=== PATIENT | male | born 1965 | race Caucasian/White ===

== ENCOUNTER → 2017-09-26 | Outpatient (CLI) | payer OTHER, BC ==
[~2017-09-26] MED LIST: ALLO100; CIPR500 PO; Cyclobenzaprine5 MG PO; FEBU40TA; HYDACE5 PO; IBUP600 PO; LISI20 PO; Norco 5-325 Ta1 EACH PO; Sudogest30 MG; Zofran Odt4 MG SL
== END | disposition home or self-care (01) ==
LOC: LAB 11:40 → LAB SHORT 11:40
DX: M10.9 Gout, unspecified (principal)
CPT/HCPCS: 84550

== ENCOUNTER 2018-01-07 00:53 | Inpatient (IN) | payer OTHER, BC ==
[~2018-01-07] VITALS: Ht 177.8 cm; Wt 86.2 kg
[~2018-01-07 00:53] MED LIST changes: +ALLO100 PO; +ASPI325EC PO; +PROM25 PO; +ROXICODONE5 MG PO; +VICODIN HP 10-1 EACH PO
[2018-01-07 01:34] LABS: BASOPHILS ABSOLUTE AUTO 0.04 K/mm3 (0.00-0.23); BASOPHILS PERCENT AUTO 1 % (0-2); EOSINOPHILS ABSOLUTE AUTO 0.43 K/mm3 (0.00-0.68); EOSINOPHILS PERCENT AUTO 5 % (0-6); Hematocrit 39.1 % (37.0-53.0); Hemoglobin 13.3 g/dL (13.5-17.5); IMMATURE GRAN ABSOLUTE AUTO 0.07 K/mm3 (0.00-0.10); IMMATURE GRAN PERCENT AUTO 1 % (0-1); LYMPHOCYTES ABSOLUTE AUTO 2.34 K/mm3 (0.84-5.20); LYMPHOCYTES PERCENT AUTO 29 % (21-46); MONOCYTES ABSOLUTE AUTO 0.95 K/mm3 (0.16-1.47); MONOCYTES PERCENT AUTO 12 % (4-13); Mean Corpuscular HGB 31.7 pg (26.0-34.0); Mean Corpuscular Volume 93 fL (80-100); Mean Platelet Volume 9.7 fL (9.1-12.4); NEUTROPHILS ABSOLUTE AUTO 4.36 K/mm3 (1.96-9.15); NEUTROPHILS PERCENT AUTO 53 % (41-73); Platelet Count 373 K/mm3 (150-400); RDW Coefficient Variation 11.8 % (11.7-14.2); RDW Standard Deviation 40.2 fL (35.1-46.3); Red Blood Cell Count 4.19 M/mm3 (4.30-5.90); White Blood Cell Count 8.19 K/mm3 (4.00-11.30)
[2018-01-07 01:46] LABS: Alanine Aminotransfer (ALT/SGP 64 U/L (12-78); Albumin, Blood 3.4 g/dL (3.4-5.0); Albumin/Globulin Ratio 0.8 (0.8-1.8); Alk Phos 110 U/L (50-136); Anion Gap 7 mmol/L (6-16); Aspartate Aminotrans (AST/SGOT 40 U/L (12-37); Bilirubin, Total 0.3 mg/dL (0.1-1.0); Blood Urea Nitrogen 17 mg/dL (8-24); Bun/Creatinine Ratio 17.8 (12.0-20.0); CO2, Blood 29 mmol/L (21-32); Chloride, Blood 104 mmol/L (98-108); Creatinine, Blood 0.96 mg/dL (0.60-1.20); Globulin, Blood 4.4 g/dL (2.2-4.0); Glomerular Filtration Rate >60 (60-); Glucose, Blood 115 mg/dL (70-99); Potassium, Blood 4.4 mmol/L (3.5-5.5); Sodium, Blood 140 mmol/L (136-145); Total Protein, Blood 7.8 g/dL (6.4-8.2)
[2018-01-07 06:14] LABS: BASOPHILS ABSOLUTE AUTO 0.03 K/mm3 (0.00-0.23); BASOPHILS PERCENT AUTO 0 % (0-2); EOSINOPHILS ABSOLUTE AUTO 0.37 K/mm3 (0.00-0.68); EOSINOPHILS PERCENT AUTO 5 % (0-6); Hematocrit 34.4 % (37.0-53.0); Hemoglobin 11.7 g/dL (13.5-17.5); IMMATURE GRAN ABSOLUTE AUTO 0.05 K/mm3 (0.00-0.10); IMMATURE GRAN PERCENT AUTO 1 % (0-1); LYMPHOCYTES ABSOLUTE AUTO 1.82 K/mm3 (0.84-5.20); LYMPHOCYTES PERCENT AUTO 24 % (21-46); MONOCYTES ABSOLUTE AUTO 0.82 K/mm3 (0.16-1.47); MONOCYTES PERCENT AUTO 11 % (4-13); Mean Corpuscular HGB 31.5 pg (26.0-34.0); Mean Corpuscular Volume 93 fL (80-100); Mean Platelet Volume 9.5 fL (9.1-12.4); NEUTROPHILS PERCENT AUTO 60 % (41-73); Platelet Count 294 K/mm3 (150-400); RDW Coefficient Variation 11.9 % (11.7-14.2); RDW Standard Deviation 40.2 fL (35.1-46.3); Red Blood Cell Count 3.72 M/mm3 (4.30-5.90); White Blood Cell Count 7.69 K/mm3 (4.00-11.30)
[2018-01-07 16:11] LABS: BODY FLUID RBC 0.756 (0-0); RBC Count, Synovial Fluid 756000 /mm3 (0-0); WBC Count, Synovial Fluid 3194 /mm3 (0-180)
[2018-01-07 16:11] LABS: BODY FLUID RBC 1.356 (0-0); RBC Count, Synovial Fluid 1356000 /mm3 (0-0); WBC Count, Synovial Fluid 7348 /mm3 (0-180)
[2018-01-07 16:12] LABS: Appearance, Synovial Fluid Bloody (Clear); Color, Synovial Fluid Red (None-P Yel)
[2018-01-07 16:12] LABS: Appearance, Synovial Fluid Bloody (Clear); Color, Synovial Fluid Red (None-P Yel)
[2018-01-07 16:15] LABS: Eos, Synovial Fluid 1 % (0-2); Lymphs, Synovial Fluid 6 % (0-15); Monocytes/Macrophages, Synovia 3 % (0-65); Neutrophils, Synovial Fluid 90 % (0-24)
[2018-01-07 16:17] LABS: Eos, Synovial Fluid 1 % (0-2); Lymphs, Synovial Fluid 2 % (0-15); Monocytes/Macrophages, Synovia 8 % (0-65); Neutrophils, Synovial Fluid 89 % (0-24)
[2018-01-08] MEDS ORDERED: CLIN300 PO (12:20)
[2018-01-08] MEDS ORDERED: Bactrim Ds Tab1 EACH PO (12:21)
[2018-01-10] MEDS ORDERED: CUBICIN500 MG IV (07:56)
== END 2018-01-08 13:10 | disposition home or self-care (01) | DRG 501 ==
LOC: ER 00:53 → SURS 03:43
PROVIDERS: Emergency Medicine; Orthopaedic Surgery
PROC: 0M9 Bursae and Ligaments, Drainage (ICD-10-PCS; 2018-01-07)
PROC: 0JDL0ZZ Extraction of Right Upper Leg Subcutaneous Tissue and Fascia, Open Approach (ICD-10-PCS; principal; 2018-01-07 12:30)
DX: T84.51XA Infection and inflammatory reaction due to internal right hip prosthesis, initial encounter (principal); L03.115 Cellulitis of right lower limb; Z87.891 Personal history of nicotine dependence; M10.9 Gout, unspecified; M16.11 Unilateral primary osteoarthritis, right hip
CPT/HCPCS: 36415; 73701; 80053; 85025; 85651; 86140; 89051; 93971; 94762; 96361; 96374; 96375; 96376; 97161; 99284-25; C1751; G8978; G8979; G8980; J0690; J1100; J1170; J1200; J1885; J1956; J2250; J2405; J2710; J3010; J3370; J7030; J7120; Q9967

== ENCOUNTER 2018-01-09 10:00 | Day surgery (SDC) | payer OTHER, BC ==
[~2018-01-09 10:00] MED LIST changes: +Bactrim Ds Tab1 EACH PO; +CLIN300 PO
[2018-01-10] MEDS ORDERED: CUBICIN500 MG IV (07:56)
== END 2018-01-09 11:21 | disposition home or self-care (01) ==
LOC: ATC 10:00
DX: T81.4XXA Infection following a procedure, initial encounter (principal); M00.9 Pyogenic arthritis, unspecified; Z96.641 Presence of right artificial hip joint
CPT/HCPCS: 96365; J0878

== ENCOUNTER 2018-01-11 00:36 | Day surgery (SDC) | payer OTHER, BC ==
[~2018-01-11 00:36] MED LIST changes: +CUBICIN500 MG IV
== END 2018-01-11 08:19 | disposition home or self-care (01) ==
LOC: ATC 00:36
DX: T81.4XXA Infection following a procedure, initial encounter (principal); M00.9 Pyogenic arthritis, unspecified; Z96.641 Presence of right artificial hip joint
CPT/HCPCS: 96365; J0878

== ENCOUNTER 2018-01-12 00:31 | Day surgery (SDC) | payer OTHER, BC | END 2018-01-12 08:40 | disposition home or self-care (01) | LOC: ATC 00:31 | DX: T81.4XXA Infection following a procedure, initial encounter (principal); Z96.641 Presence of right artificial hip joint | CPT/HCPCS: 96365; 99211; J0878 ==

== ENCOUNTER 2018-01-13 07:55 | Day surgery (SDC) | payer OTHER, BC | END 2018-01-13 08:41 | disposition home or self-care (01) | LOC: ATC 07:55 | DX: T81.4XXA Infection following a procedure, initial encounter (principal); M00.9 Pyogenic arthritis, unspecified; Z96.641 Presence of right artificial hip joint | CPT/HCPCS: 96365; J0878 ==

== ENCOUNTER 2018-01-14 00:42 | Day surgery (SDC) | payer OTHER, BC | END 2018-01-14 08:13 | disposition home or self-care (01) | LOC: ATC 00:42 | DX: T81.4XXA Infection following a procedure, initial encounter (principal); M00.9 Pyogenic arthritis, unspecified; Z96.641 Presence of right artificial hip joint | CPT/HCPCS: 96365; J0878 ==

== ENCOUNTER 2018-01-15 00:13 | Day surgery (SDC) | payer OTHER, BC | END 2018-01-15 08:24 | disposition home or self-care (01) | LOC: ATC 00:13 | DX: T81.4XXA Infection following a procedure, initial encounter (principal); Z96.641 Presence of right artificial hip joint | CPT/HCPCS: 96365; J0878 ==

== ENCOUNTER 2018-01-16 02:12 | Day surgery (SDC) | payer OTHER, BC | END 2018-01-16 08:10 | disposition home or self-care (01) | LOC: ATC 02:12 | DX: T81.4XXA Infection following a procedure, initial encounter (principal); Z96.641 Presence of right artificial hip joint | CPT/HCPCS: 96365; J0878 ==

== ENCOUNTER 2018-01-17 00:09 | Day surgery (SDC) | payer OTHER, BC | END 2018-01-17 08:18 | disposition home or self-care (01) | LOC: ATC 00:09 | DX: T81.4XXA Infection following a procedure, initial encounter (principal); Z96.641 Presence of right artificial hip joint | CPT/HCPCS: 96365; J0878 ==

== ENCOUNTER 2018-01-18 00:19 | Day surgery (SDC) | payer OTHER, BC | END 2018-01-18 08:15 | disposition home or self-care (01) | LOC: ATC 00:19 | DX: T81.4XXA Infection following a procedure, initial encounter (principal); Z96.641 Presence of right artificial hip joint | CPT/HCPCS: 96365; J0878 ==

== ENCOUNTER 2018-01-19 08:00 | Day surgery (SDC) | payer OTHER, BC | END 2018-01-19 08:49 | disposition home or self-care (01) | LOC: ATC 08:00 | DX: T81.4XXA Infection following a procedure, initial encounter (principal); L08.89 Other specified local infections of the skin and subcutaneous tissue; Z96.641 Presence of right artificial hip joint | CPT/HCPCS: 96365; J0878 ==

== ENCOUNTER 2018-01-20 07:56 | Day surgery (SDC) | payer OTHER, BC | END 2018-01-20 08:42 | disposition home or self-care (01) | LOC: ATC 07:56 | DX: T81.4XXA Infection following a procedure, initial encounter (principal); Z96.641 Presence of right artificial hip joint; Z87.891 Personal history of nicotine dependence | CPT/HCPCS: 96365; J0878 ==

== ENCOUNTER 2018-01-21 00:35 | Day surgery (SDC) | payer OTHER, BC | END 2018-01-21 08:12 | disposition home or self-care (01) | LOC: ATC 00:35 | DX: T81.49XA Infection following a procedure, other surgical site, initial encounter (principal) | CPT/HCPCS: 96365; J0878 ==

== ENCOUNTER 2019-05-13 11:36 | Inpatient (IN) | payer BC ==
[~2019-05-13] VITALS: Ht 177.8 cm; Wt 100.9 kg
[~2019-05-13 11:36] MED LIST changes: +IBUP800 PO; +VICODIN ES 7.51 EACH PO; +Voltaren100 GM TOP
--- NOTE | 2019-05-14 06:48 | NUR ---
History, Chart, Medications and Allergies reviewed before start of procedure. Lungs clear T/O to Auscultation. Patient confirms NPO status and agrees with scheduled surgery. Pre-Op teaching done. Pt verbalizes understanding. Patient reports completing Chlorhexadine shower X2 prior to admission to hospital. Surgical site prepped with 2% Chlorhexidine cloth wipe. Patient has no complaints of pain at this time. All belonging placed under bed in bag.
--- NOTE | 2019-05-14 11:52 | NUR ---
TRANSFER TO SURGICAL FLOOR PT ARRIVED TO UNIT FROM PACU AT 1030 TODAY VIA HOSPITAL BED. A/OX4 WITH VSS, DENIES SOB, DYSPNEA, OR CHEST PAIN. ABLE TO WIGGLE FINGERS/TOES. DRESSING TO LEFT HIP APPEARS C/D/I WITH NO DRAINAGE NOTED. PAIN AT TOLERABLE LEVEL. POLAR PACK TO LEFT HIP AND BLE TEDS/PAS IN PLACE. TOLERATING CL. AWAITING POST-OP VOID. HAS CALL LIGHT IN REACH AND IS CURRENTLY IN BED VISITING WITH . WILL CONT TO MONITOR.
--- NOTE | 2019-05-14 13:18 | NUR ---
UPDATE PT UP IN CHAIR AND TOLERATING REGULAR DIET. ABLE TO VOID. DRESSING TO LEFT HIP C/D/I WITH NO DRAINAGE NOTED. PAS/TEDS BLE IN PLACE. POLAR DORCAS TO LEFT HIP IN PLACE. AWAITING THERAPY. CURRENTLY VISITING WITH SPOUSE. HAS CALL LIGHT IN REACH.
[2019-05-14] MEDS ORDERED: ASPI325 PO (15:18)
[2019-05-14] MEDS ORDERED: BACTRIM DS TAB1 EACH PO (15:19)
--- NOTE | 2019-05-14 15:25 | NUR ---
P/T IN TO WORK WITH PATIENT AT THIS TIME
[2019-05-14] MEDS ORDERED: OXYC5 PO (15:31)
--- NOTE | 2019-05-14 17:48 | NUR ---
SHIFT SUMMARY PT D/C HOME TODAY AT 1710 VIA WHEELCHAIR. LEFT HIP AND LEG DRESSING C/D/I WITH NO DRAINAGE NOTED. DISCHARGE INSTRUCTIONS, EXTRA DRESSINGS, PERSONAL BELONGINGS, AND POLAR PACK GIVEN TO PT/SPOUSE UPON D/C. SCRIPTS GIVEN TO PT BY PROVIDER PRE-OP, KETURAH CALLED INTO [facility] PER MD. PAIN MANAGED W/PO MEDICATION. TOLERATING REGULAR DIET AND VOIDING WITHOUT DIFFICUTLY. WORKED WITH THERAPY AND WAS CLEARED. IV REMOVED WITH CATH INTACT. PT AND SPOUSE VERBALIZED UNDERSTANDING OF D/C INSTRUCTIONS AND DECLINED ANY QUESTIONS OR CONCERNS.
== END 2019-05-14 17:45 | disposition home or self-care (01) | DRG 470 ==
LOC: SURS 05-14 06:00 → PRE IP 05-14 07:30 → SURS 05-14 10:29
PROVIDERS: ADMIT Orthopaedic Surgery
PROC: 0SRB04A Replacement of Left Hip Joint with Ceramic on Polyethylene Synthetic Substitute, Uncemented, Open Approach (ICD-10-PCS; principal; 2019-05-14 07:30)
DX: M16.12 Unilateral primary osteoarthritis, left hip (principal)
CPT/HCPCS: 72170; 88300; 97110; 97116; 97162; 97165; 97535; A9270-GY; C1713; C1776; J0171; J0461; J0690; J0735; J1100; J1885; J2250; J2370; J2405; J2704; J2795; J3010; J3370; J7120

== ENCOUNTER 2022-02-07 17:05 | Emergency (ER) | payer BC ==
[~2022-02-07] VITALS: Ht 177.8 cm; Wt 97.5 kg
[~2022-02-07 17:05] MED LIST changes: +ASPI325 PO; +BACTRIM DS TAB1 EACH PO; +OXYC5 PO
[2022-02-07 17:43] LABS: BASOPHILS ABSOLUTE AUTO 0.04 K/mm3 (0.00-0.23); BASOPHILS PERCENT AUTO 0 % (0-2); EOSINOPHILS ABSOLUTE AUTO 0.18 K/mm3 (0.00-0.68); EOSINOPHILS PERCENT AUTO 2 % (0-6); Hematocrit 39.5 % (37.0-53.0); Hemoglobin 13.6 g/dL (13.5-17.5); IMMATURE GRAN ABSOLUTE AUTO 0.04 K/mm3 (0.00-0.10); IMMATURE GRAN PERCENT AUTO 0 % (0-1); LYMPHOCYTES ABSOLUTE AUTO 1.06 K/mm3 (0.84-5.20); LYMPHOCYTES PERCENT AUTO 10 % (21-46); MONOCYTES ABSOLUTE AUTO 1.23 K/mm3 (0.16-1.47); MONOCYTES PERCENT AUTO 11 % (4-13); Mean Corpuscular HGB 32.9 pg (26.0-34.0); Mean Corpuscular HGB Conc 34.4 g/dL (31.5-36.5); Mean Corpuscular Volume 96 fL (80-100); Mean Platelet Volume 10.2 fL (9.1-12.4); NEUTROPHILS ABSOLUTE AUTO 8.51 K/mm3 (1.96-9.15); NEUTROPHILS PERCENT AUTO 77 % (41-73); Platelet Count 198 K/mm3 (150-400); RDW Coefficient Variation 12.6 % (11.7-14.2); RDW Standard Deviation 44.3 fL (35.1-46.3); Red Blood Cell Count 4.13 M/mm3 (4.30-5.90); White Blood Cell Count 11.06 K/mm3 (4.00-11.30)
[2022-02-07] MEDS ORDERED: HYDSUL200 PO (18:13)
[2022-02-07 18:15] LABS: Albumin, Blood 3.9 g/dL (3.4-5.0); Albumin/Globulin Ratio 1.1 (0.8-1.8); Bilirubin, Total 0.6 mg/dL (0.1-1.0); Bun/Creatinine Ratio 19.4 (12.0-20.0); Calcium, Blood 9.5 mg/dL (8.5-10.1); Creatinine, Blood 1.08 mg/dL (0.60-1.20); Globulin, Blood 3.7 g/dL (2.2-4.0); Total Protein, Blood 7.6 g/dL (6.4-8.2)
[2022-02-07] MEDS ORDERED: CEPH500 PO (19:26)
== END 2022-02-07 19:44 | disposition home or self-care (01) ==
LOC: ER 17:05
PROVIDERS: Emergency Medicine
DX: L03.115 Cellulitis of right lower limb (principal); Z79.899 Other long term (current) drug therapy
CPT/HCPCS: 36415; 80053; 85025; 93971

== ENCOUNTER 2023-05-29 07:00 | Day surgery (SDC) | payer BC ==
[2023-05-29] VITALS (23 sets, daily range): BP systolic 151–186; BP diastolic 90–124
[~2023-05-29] VITALS: Ht 177.8 cm; Wt 106.0 kg
[~2023-05-29 07:00] MED LIST changes: +CEPH500 PO; +FAMO10 PO; +HYDSUL200 PO; +MAGNESIUM; +VITAMIN D310 MC4 PO; +ZINC15; +ZYRTEC10 M2 PO
[2023-05-29] MEDS ORDERED: Chlorhexidine Mouth Care 15 ML UDC MT SCH (07:05)
[2023-05-29] MEDS ORDERED: Lactated Ringer's 1,000 ML IV SCH ×2 (07:05→09:30)
[2023-05-29] MEDS ORDERED: Ropivacaine 0.5% HCl/Pf 67.75 MG,EPINEPHrine HCL 0.25 MG,Ketorolac Tromethamine 15 MG,C... INFIL SCH (07:05)
[2023-05-29] MEDS ORDERED: OxyCODONE HCL 10 MG TABCR PO SCH (07:05)
[2023-05-29] MEDS ORDERED: CeFAZolin Sodium 2,000 MG in NS 50 ML IV SCH ×2 (07:05→17:15)
[2023-05-29] MEDS ORDERED: Vancomycin HCL 1,000 MG in NS 100 ML IV SCH (07:05)
[2023-05-29] MEDS ORDERED: Acetaminophen 500 MG Tab PO SCH ×2 (07:05→16:00)
[2023-05-29] MEDS ORDERED: TRANEXAMIC ACID IV SCH (07:15)
[2023-05-29] MEDS ORDERED: NS IV SCH (07:15)
[2023-05-29] MEDS ORDERED: propofoL 20 ML IV ONE (08:36)
[2023-05-29] MEDS ORDERED: CYCL10 PO (08:37)
[2023-05-29] MEDS ORDERED: FentaNYL Citrate 50 MCG/ML 2 ML Injection ONE ×5 (09:12→10:40)
[2023-05-29] MEDS ORDERED: Promethazine HCl 25 MG Tab PO PRN (09:30)
[2023-05-29] MEDS ORDERED: Magnesium Hydroxide Conc 10 ML UDC PO PRN (09:30)
[2023-05-29] MEDS ORDERED: OxyCODONE HCL 5 MG TAB PO PRN ×2 (09:30→09:35)
[2023-05-29] MEDS ORDERED: Metoclopramide HCl 5MG / ML 2ML Vial IV PRN (09:30)
[2023-05-29] MEDS ORDERED: Bisacodyl 10 MG Supp PR PRN (09:30)
[2023-05-29] MEDS ORDERED: FLU VACC QS2023-24(6MOS UP)/PF 60 MCG/0.5 ML SYRINGE IM SCH (09:35)
[2023-05-29] MEDS ORDERED: HYDROmorphone HCl/Pf 1MG SYR IV PRN ×2 (09:35→09:55)
[2023-05-29] MEDS ORDERED: Ondansetron HCl 2 MG / ML 2ML Vial IV PRN ×2 (09:35→09:55)
[2023-05-29] MEDS ORDERED: DiphenhydrAMINE HCL 25 MG Cap PO PRN (09:35)
[2023-05-29] MEDS ORDERED: Dexamethasone Sod Phos 10 MG/ML 1ML VIAL ONE (09:50)
--- NOTE | 2023-05-29 09:50 | NUR ---
05/29/23 0950 Yessy Torres SPINAL NERVE BLOCK ATTEMPTED BY DR. EVANS UPON ENTRY TO OR. PT TOLERATED WELL, HOWEVER ATTEMPTS WERE UNSUCCESSFUL. DR. EVANS PLACED AN LMA AFTER PATIENT WAS SEDATED AND MONITORED.
[2023-05-29] MEDS ORDERED: FentaNYL Citrate 50 MCG/ML 2 ML Injection IV PRN ×2 (09:55)
[2023-05-29] MEDS ORDERED: ePHEDrine Sulfate 50 MG/ML 1ML Injection IV PRN (09:55)
[2023-05-29] MEDS ORDERED: Dexamethasone Sodium Phosphate 4 MG/ML 5ML VIAL IV PRN (09:55)
[2023-05-29] MEDS ORDERED: Morphine Sulfate 4 MG/1 ML Injection IV PRN (09:55)
[2023-05-29] MEDS ORDERED: Albuterol 2.5 MG/3 ML VIAL INH PRN (10:00)
[2023-05-29] MEDS ORDERED: Labetalol HCL 5 MG/ML 4ML Injection (Single Dose) IV PRN (10:00)
[2023-05-29] MEDS ORDERED: Atropine Sulfate 0.1 MG/ML 10ML SYR IV PRN (10:00)
[2023-05-29] MEDS ORDERED: LORazepam 2 MG/ML 1ML Injection IV PRN (10:00)
[2023-05-29] MEDS ORDERED: Phenylephrine HCl 100 MCG/ML-NS 10MLSYR (1MG/10ML) ONE (10:02)
[2023-05-29] MEDS ORDERED: Ondansetron HCl 2 MG / ML 2ML Vial ONE (10:23)
[2023-05-29] MEDS ORDERED: Ketorolac Tromethamine 30mg Vial ONE (10:32)
--- NOTE | 2023-05-29 10:32 | NUR ---
History, Chart, Medications and Allergies reviewed before start of procedure. Patient up to Ambulate independently. Gait steady. Pre-Op teaching done. Pt verbalizes understanding. Patient confirms NPO status and agrees with scheduled surgery. Patient reports completing Chlorhexadine shower X5 prior to admission to hospital. Lungs clear T/O to Auscultation. Patient states Post-Procedure ride home has been arranged.
[2023-05-29] MEDS ORDERED: LORazepam 2 MG/ML 1ML Injection ONE (10:53)
[2023-05-29] MEDS ORDERED: HYDROmorphone HCl/Pf 1MG SYR ONE ×2 (10:58→11:18)
[2023-05-29] MEDS ORDERED: Labetalol HCL 5 MG/ML 4ML Injection (Single Dose) ONE (11:49)
[2023-05-29] MEDS ORDERED: Ketorolac Tromethamine 15mg Vial IV SCH (12:00)
--- NOTE | 2023-05-29 12:33 | NUR ---
PT REMAINED HYPERTENSIVE ON ARRIVAL TO UNIT. SPOKE WITH DR. DILLARD BEFORE PATIENT ARRIVED, ORDERS FOR HOSPITALIST CONSULT RECIEVED. NOTIFIED DR. BRUSH. PATIENT AND SPOUSE DENY HX OR ANY MEDICATIONS FOR HTN. PT REPORTS PAIN TOLERABLE ON ARRIVAL TO UNIT. NO NUMBNESS OR TINGLING. POLAR DORCAS IN PLACE. DRESSING CDI.
[2023-05-29] MEDS ORDERED: CloNIDine 0.1 MG Tab PO PRN (12:45)
[2023-05-29] MEDS ORDERED: ASPI81CH PO (15:42)
[2023-05-29] MEDS ORDERED: Percocet 5-3251 EACH PO (15:42)
--- NOTE | 2023-05-29 17:09 | NUR ---
discharge s/p l tka pt left via wheelchair. worked well with therapy, reports pain well controlled per emar. voiding tolerating diet. all instructions gone over with patient and dressings sent. prescriptions given to prior to discharge. polar nadine on, lyla wrap cdi.
[2023-05-29] MEDS ORDERED: Docusate Sodium 100 MG Cap PO SCH (21:00)
[2023-05-30] MEDS ORDERED: Famotidine 20 MG Tab PO SCH (09:00)
[2023-05-30] MEDS ORDERED: Allopurinol 300 MG Tab PO SCH (09:00)
[2023-05-30] MEDS ORDERED: Loratadine 10 MG Tab PO SCH (09:00)
[2023-05-30] MEDS ORDERED: Aspirin 81 MG Chew PO SCH (09:00)
== END 2023-05-29 16:33 | disposition home or self-care (01) ==
LOC: ORSCMMR 07:00 → ORD 07:30 → ORSCMMR 08:15 → ORD 10:00 → SURS 11:37 → ORSCMMR 16:33
PROVIDERS: Orthopaedic Surgery
PROC: 0SRD0JZ Replacement of Left Knee Joint with Synthetic Substitute, Open Approach (ICD-10-PCS; principal; 2023-05-29 08:15)
DX: M17.12 Unilateral primary osteoarthritis, left knee (principal); I10 Essential (primary) hypertension; Z68.33 Body mass index [BMI] 33.0-33.9, adult; K21.9 Gastro-esophageal reflux disease without esophagitis; Z96.643 Presence of artificial hip joint, bilateral; Z79.899 Other long term (current) drug therapy
CPT/HCPCS: 73560-LT; 97110; 97116; 97161; 97530; A9270; C1713; C1776; J0171; J0690; J0735; J1100; J1170; J1885; J2060; J2371; J2405; J2704; J2795; J3010; J3370; J7120